=== PATIENT | male | born 2000 | race Caucasian/White ===

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

== ENCOUNTER 2019-08-14 15:50 | Emergency (ER) | payer OTHER ==
--- OUTSIDE RECORDS SUMMARY | 2019-08-14 15:57 | XMS REPORT | Continuity of Care Document ---
:1999 External Reference #:[id number] Author Name Nnamdi Freed M.D. Address [address] [place] [address] Care Team Providers Name Role Phone Nnamdi Freed M.D. - Pediatrics Care Team Information Transformation Lead Luiz Butterfield MD - Allergy Care Team Information Transformation Lead Stef Trevino MD - Pediatric Care Team Information Transformation Lead [phone] Gastroenterology Basilio Juarez MD - Otolaryngology Care Team Information Transformation Lead [phone] Yfn Lambert - Orthopaedic Surgery Care Team Information Transformation Lead Problems Active Problems Provider Date Eosinophilic esophagitis Poornima Aviles M.D. Onset: 09/26/2014 Note: 05/20/16: no longer on the swallowed inhaled steroid. Continues on prevacid. Following with Dr. Gomes. Celiac disease Nnamdi Freed M.D. Onset: 05/19/2015 Mild persistent asthma Nnamdi Freed M.D. Onset: 05/19/2015 Note: 05/28/15: Spirometry does not reflect chronic airway obstruction from asthma. Given this, as well as no albuterol use over the past year, plan to switch to QVAR prn when having viral URI symptoms over the Winter. 05/20/16: Continues to use QVAR prn. Allergic asthma without status asthmaticus Nursing Onset: 12/17/2015 Social History Type Date Description Comments Sex Unknown ETOH Use Denies alcohol use Tobacco Use Start: Unknown Patient has never smoked Recreational Drug Use Denies Drug Use Smoking Status Reviewed: 07/02/19 Patient has never smoked Allergies, Adverse Reactions, Alerts Active Allergies Reaction Severity Comments Date Gluten 10/22/2017 Medications Active Medications SIG Qnty Indications Ordering Provider Date Flonase 1 spray each 1units J30.9 Nnamdi Freed, 07/02/2019 50mcg/Act nostril every day M.D. Suspension Flonase Allergy 1 spray each 1units Nnamdi Freed, 07/02/2019 Relief nostril daily M.D. 50mcg/Act Suspension Flovent HFA 1 puff inhaled 1units Nnamdi Freed, 06/12/2018 110mcg/Act twice a day M.D. Aerosol Aerochamber Z-Stat use spacer with 1units J45.20 Priti 09/06/2017 Plus/Flowsignal inhaler. [place] [facility] [place]air HFA 2 puffs every 4 1units Nnamdi Freed, 07/09/2015 108(90Base) hours as needed M.D. mcg/Act Aerosol Medications Administered in Office Medication SIG Qnty Indications Ordering Provider Date Immunization Administration Nnamdi Freed M.D. 07/02/2019 Single Or Combination Injection Immunization Administration TEA Oliva 06/26/2018 Single Or Combination Injection Immunization Administration TEA Oliva 09/05/2017 Single Or Combination Injection Immunization Administration Nnamdi Freed M.D. 05/20/2016 Single Or Combination Injection Immunization Administration Nursing 07/22/2015 Single Or Combination Injection Immunization Administration Jenae Rodas NP 08/09/2014 Single Or Combination Injection Immunizations CPT Code Status Date Vaccine Lot # [id number] Given 07/02/2019 Flu Quadrivalent [id number] 64568 Given 06/26/2018 Flu Quadrivalent [id number] 93712 Given 09/05/2017 Flu Quadrivalent [id number] 36086 Given 05/20/2016 Meningococcal Conjugate Vaccine (Menveo) 16605 Given 07/22/2015 Flu Quadrivalent [id number] 31167 Given 08/09/2014 Flu Quadrivalent [id number] 86762 Given 06/18/2013 Influenza Virus Vaccine, Split Virus, 6-35 Months Age Intramuscul 09203 Given 12/22/2012 Gardasil 57564 Given 07/20/2012 Influenza Virus Vaccine, Split Virus, 6-35 Months Age Intramuscul 26853 Given 07/20/2012 Gardasil 59687 Given 05/10/2012 Gardasil 03255 Given 07/30/2011 Influenza Virus Vaccine, Split Virus, 6-35 Months Age Intramuscul 24121 Given 06/23/2010 Influenza Virus Vaccine, Split Virus, 6-35 Months Age Intramuscul 97419 Given 04/29/2010 Tdap 50616 Given 04/29/2010 Varicella (Chicken Pox) Vaccine 78235 Given 08/25/2009 Influenza Virus Vaccine, Split Virus, 6-35 Months Age Intramuscul 48414 Given 03/31/2009 Hepatitis A Pediatric 52401 Given 06/25/2008 Influenza Virus Vaccine, Split Virus, 6-35 Months Age Intramuscul 00215 Given 01/23/2008 Menactra 88607 Given 01/23/2008 Hepatitis A Pediatric 14402 Given 08/08/2007 Influenza Virus Vaccine, Split Virus, 6-35 Months Age Intramuscul 01886 Given 07/28/2006 Influenza Virus Vaccine, Split Virus, 6-35 Months Age Intramuscul 18616 Given 12/10/2004 Polio Injectable 98287 Given 12/10/2004 MMR Vaccine, Live, For Subcutaneous Use 30762 Given 12/10/2004 DTaP Vaccine Younger Than 7 11349 Given 06/07/2001 Prevnar 13 01621 Given 06/07/2001 Hib Vaccine 34189 Given 06/07/2001 DTaP Vaccine Younger Than 7 75662 Given 11/17/2000 Varicella (Chicken Pox) Vaccine 83815 Given 11/17/2000 Polio Injectable 29007 Given 11/17/2000 MMR Vaccine, Live, For Subcutaneous Use 15664 Given 11/17/2000 Prevnar 13 47175 Given 09/05/2000 Prevnar 13 57609 Given 06/06/2000 DTaP Vaccine Younger Than 7 10505 Given 06/06/2000 Prevnar 13 08596 Given 06/06/2000 Hib Vaccine 19014 Given 03/23/2000 Hepatitis B Vaccine Pediatric/Adolescent 51399 Given 03/23/2000 Polio Injectable 75546 Given 03/23/2000 DTaP Vaccine Younger Than 7 27360 Given 03/23/2000 Hib Vaccine 61937 Given 01/14/2000 DTaP Vaccine Younger Than 7 63341 Given 01/14/2000 Hib Vaccine 23325 Given 01/14/2000 Hepatitis B Vaccine Pediatric/Adolescent 57247 Given 01/14/2000 Polio Injectable 09070 Given 1999 Hepatitis B Vaccine Pediatric/Adolescent 00143 Refused 06/26/2018 Meningococcal B Vaccine Vital Signs Date Vital Result Comment 07/02/2019 9:36am Body Temperature 98.3 F Heart Rate 100 /min Respiratory Rate 20 /min BP Systolic 143 mmHg BP Diastolic 88 mmHg Weight 151.50 lb Weight 68.720 kg Height 65.25 inches 5'5.25" x2 BMI (Body Mass Index) 25.0 kg/m2 Body Mass Index Percentile 74 % Height Percentile 6 % Weight Percentile 45th 10/19/2018 1:47pm Body Temperature 98.4 F Heart Rate 88 /min Respiratory Rate 16 /min BP Systolic 138 mmHg BP Diastolic 70 mmHg Blood Pressure Percentile 0 % Weight 137.44 lb Weight 62.342 kg Weight Percentile 25th Results Description No Information Available Procedures Date Code Description Status 07/02/2019 89262 Vision Screening Completed 07/02/2019 41835 Admin Patient Focused Health Risk Assessment Instrument Completed 07/02/2019 41200 Brief Emotional/Behav Assessment W/ Scoring Doc Per Completed Standard Inst 07/02/2019 28041 Hearing Screen, Pure Tone, Air Completed Medical Devices Description No Information Available Encounters Type Date Location Provider Dx Diagnosis Office Visit 07/02/2019 [facility] Nnamdi Freed Z00.00 Encntr for general 9:30a M.DHamlet adult medical exam w/o abnormal findings Z23 Encounter for immunization Z71.89 Other specified counseling Z13.89 Encounter for screening for other disorder Assessments Date Code Description Provider 07/02/2019 Z00.00 Encounter for general adult medical Nnamdi Freed M.D. examination without abnormal findings 07/02/2019 Z23 Encounter for immunization Nnamdi Freed M.D. 07/02/2019 Z71.89 Other specified counseling Nnamdi Freed M.D. 07/02/2019 Z13.89 Encounter for screening for other disorder Nnamdi Freed M.D. Plan of Treatment Future Appointment(s):07/07/2020 10:00 am - Nnamdi Freed M.D. at [facility]07/02/2019 - Nnamdi Freed M.D.Z00.00 Encounter for general adult medical examination without abnormal findingsComments:Issues below1) Eosinophilic esophagitis - Has not had symptoms in a couple of years and is off the swallowed inhaled steroid. No longer following up with Dr. Trevino.2) Celiac disease - Continues to avoid gluten. Will need to establish follow up with an adult GI. 3) MIld persistent asthma - Uses the flovent regularly in the fall- winter months. Minimal albuterol use.4) Allergic rhinitis - flonase dailyIn additiona, he has a family history of thyroid disease in two first degree relatives. Plan for thyroid studies as ordered. Has been otherwise well. 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 Blood pressure initially a bit elevated, but normal on re-check.Z23 Encounter for kbmoorawbandC71.89 Other specified zbaiktabkwA18.89 Encounter for screening for other disorder Functional Status Description No Information Available Mental Status Description No Information Available Referrals Description No Information Available
[2019-08-14 16:11] VITALS: BP 130/78
--- NOTE | 2019-08-14 16:16 | UC ---
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 He has had right knee pain over the past few months but last evening he was doing a lot of excessive walking and he had increased pain. - History of Current Complaint Chief Complaint: UCLowerExtremity Stated Complaint: RT KNEE ISSUE Time Seen by Provider: 08/14/19 15:54 Hx Obtained From: Patient Onset/Duration: Gradual Onset Severity Initially: Mild Severity Currently: Mild Pain Intensity: 0 Character: Dull, Aching Aggravating Factor(s): Weight Bearing Alleviating Factor(s): Rest Associated Signs And Symptoms: Positive: Negative Able to Bear Weight: Yes - Allergies/Home Medications Allergies/Adverse Reactions: Allergies Allergy/AdvReac Type Severity Reaction Status Date / Time WHEAT, RYE, BARLEY Allergy CELIAC Uncoded 08/14/19 16:09 DISEASE PMH/Surg Hx/FS Hx/Imm Hx Previously Healthy: Yes - Surgical History Surgical History: Yes Surgery Procedure, Year, and Place: EGD FOR FOREIGN OBJECT, 2008. [facility] EGD 2013 - Family History Known Family History: Negative: Cardiac Disease, Hypertension, Diabetes - Social History Occupation: Employed Full-time Alcohol Use: None Substance Use Type: None Smoking Status (MU): Never Smoked Tobacco - Immunization History Most Recent Influenza Vaccination: 2017 Vaccination Up to Date: Yes Review of Systems All Other Systems Reviewed And Are Negative: Yes Musculoskeletal: Positive: Other: - Mild right knee pain Is Patient Immunocompromised?: No Physical Exam Triage Information Reviewed: Yes Appearance: Well-Appearing, No Pain Distress, Well-Nourished Vital Signs: Initial Vital Signs Temp 98.9 F 08/14/19 16:09 Pulse 75 08/14/19 16:09 Resp 18 08/14/19 16:09 BP 130/78 08/14/19 16:09 Pulse Ox 96 08/14/19 16:09 Vital Signs Reviewed: Yes Musculoskeletal: Positive: Strength Intact, ROM Intact, Other: - Good peripheral pulses, neuro sensation and capillary refill. Patellar and knee ligaments are intact. Patient has full range of motion. Very minimal tenderness on palpation just below the right patella. No erythema, deformity, bruising or swelling is noted. Neurological Exam: Normal Psychological Exam: Normal Skin Exam: Normal Knee Pain Course/Dx - Course Course Of Treatment: Right knee x-ray: Negative The patient has the next week off of work so he is to elevate as much as possible and apply heat to the sore areas. He may take Tylenol or Motrin for pain. A knee immobilizer is applied and he can use that for comfort. Definite follow-up with the orthopedist in 4 or 5 days if no improvement. - Differential Dx/Diagnosis Provider Diagnosis: Strain of right knee Discharge ED - Sign-Out/Discharge Documenting (check all that apply): Patient Departure All imaging exams completed and their final reports reviewed: Yes - Discharge Plan Condition: Good Disposition: HOME Patient Education Materials: Knee Pain (ED) Referrals: Carolina Ritchie MD [Medical Doctor] - Nnamdi Freed MD [Primary Care Provider] - Additional Instructions: Apply heat to the sore area. Use the knee immobilizer for comfort and may remove as necessary. Follow-up with the orthopedist if no improvement in 3 or 4 days. Avoid excessive walking - Billing Disposition and Condition Condition: GOOD Disposition: Home - Attestation Statements Provider Attestation: Per institutional requirements, I have reviewed the chart, however, I was not consulted specifically or made aware of this patient by the midlevel provider. I did not personally evaluate, interact with , or disposition this patient.
== END 2019-08-14 17:10 | disposition home or self-care (01) ==
LOC: UCEAST 15:50
DX: S86.911A Strain of unspecified muscle(s) and tendon(s) at lower leg level, right leg, initial encounter (principal); Z91.018 Allergy to other foods; X58.XXXA Exposure to other specified factors, initial encounter; Y93.01 Activity, walking, marching and hiking; Y92.9 Unspecified place or not applicable
CPT/HCPCS: 99212; G0463